=== PATIENT | male | born 1990 | race Caucasian/White ===

== ENCOUNTER 2021-03-02 17:47 | Emergency (ER) | payer OTHER, SELFPAY ==
[2021-03-02 18:14] VITALS: BP 160/83; PULSE 97; RESP 15; TEMP 36.9; O2SAT 97; BMI 27.4
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
[2021-03-02] MEDS: naproxen 500 mg Tablet PO (19:37)
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
[2021-03-02] MEDS: CELEcoxib 200 mg Capsule 400 MG PO (20:23)
[2021-03-02 20:26] VITALS: BP 137/79; PULSE 87; RESP 15; TEMP 36.9; O2SAT 97
== END 2021-03-02 20:24 | disposition home or self-care (01) ==
PROVIDERS: Emergency Provider Nurse Practitioner Family
DX: Z04.1 Encounter for examination and observation following transport accident (principal); V53.5XXA Driver of pick-up truck or van injured in collision with car, pick-up truck or van in traffic accident, initial encounter
CPT/HCPCS: 70450; 71045; 72125; 72170; 73030; 73090; 73562; 99282

== ENCOUNTER 2021-03-13 11:20 | Outpatient (CLI) | payer OTHER, SELFPAY ==
--- NOTE | 2021-03-13 11:28 | XR_ITS ---
WS: [id number] XR lumbar spine 2-3V* [id number] REASON FOR EXAM: BACK PAIN FINDINGS: No significant compression deformity or other focal vertebral body abnormality is identified. There is moderate narrowing of the L5-S1 disc space. There is 4 mm of anterolisthesis of L5 in relati on to L4. There is 7 mm of anterolisthesis of L5 in relation to S1. No spondylolysis identified. XR/XR lumbar spine 2-3V* [id number] IMPRESSION: Degenerative spondylosis at L5-S1 as above.
--- NOTE | 2021-03-13 11:37 | XR_ITS ---
WS: [id number] XR forearm LT 2V [id number] REASON FOR EXAM: ARM PAIN LEFT FINDINGS: No fracture or other focal bone lesion. Joint spaces of the elbow are intact and well preserved. No soft tissue abnormality. XR/XR forearm LT 2V [id number] IMPRESSION: No significant abnormality identified.
--- NOTE | 2021-03-13 11:37 | XR_ITS ---
WS: [id number] Left elbow, 3 views, 03/13/2021 Clinical Data: ARM PAIN LEFT Comparison: None. Findings: No fractures or dislocations are seen. The radial head is normal. The soft tissues are unremarkable. XR/XR elbow LT min 3V* [id number] Impression: Negative left elbow.
== END 2021-03-13 11:21 | disposition home or self-care (01) ==
LOC: RAD 11:24
PROVIDERS: PCP Family Medicine; Visit Provider Family Medicine
DX: M79.602 Pain in left arm (principal); M54.50 Low back pain, unspecified; M47.817 Spondylosis without myelopathy or radiculopathy, lumbosacral region
CPT/HCPCS: 72100; 73080; 73090

== ENCOUNTER 2021-04-06 15:18 | Outpatient (CLI) | payer OTHER, SELFPAY ==
--- NOTE | 2021-04-06 15:21 | MR_ITS ---
WS: [id number] MRI LUMBAR SPINE NONCONTRAST HISTORY: LUMBAR BACK PAIN COMPARISON: Lumbar spine radiograph 03/13/2021 TECHNIQUE: Sagittal and axial multisequence imaging is submitted. L5 anterolisthesis by 7 mm. Mild disc space narrowing and desiccation at L5-S1. There is also mild di sc desiccation at L4-5 without disc space narrowing. Central disc bulging and posterior osteophytes a t T12-L1 without contact on the conus. No marrow edema or fracture. Conus terminates normally at L1-2 disc level. L1-L2: Normal. L2-L3: Normal. L3-L4: Mild ligamentum flavum hypertrophy. No disc protrusions or stenosis. L4-L5: Mild annular disc bulge with a central disc protrusion. Mild ligamentum flavum and facet arthr itis. There is a small amount of fluid in the facet joints. The disc bulging and protrusion is contac ting the traversing L5 nerve roots. Mild bilateral foraminal and subarticular recess stenosis. L5-S1: Anterolisthesis of L5 with unroofing of the disc. There is disc bulging with a central disc pr otrusion. No central stenosis. The disc protrusion does not appear to be contacting S1 nerve roots. T here is very slight contact on the exiting LEFT L5 nerve root. More contact is noted on the exiting R IGHT L5 nerve root. Moderate RIGHT and mild LEFT foraminal stenosis. MR/MR lumbar spine wo con* [id number] IMPRESSION: 1. Grade 1 anterolisthesis of L5. 2. Moderate RIGHT and mild LEFT foraminal stenosis at L5-S1. Disc is contactin g the exiting L5 nerve roots bilaterally, RIGHT greater than LEFT. 3. Disc bulging and protrusion contacting the traversing L5 nerve roots. Mild bilateral foraminal subarticular recess stenosis at L4-5.
--- NOTE | 2021-04-06 15:21 | MR_ITS ---
WS: [id number] MRI LEFT KNEE HISTORY: LEFT KNEE PAIN COMPARISON: Radiograph 03/02/2021 Anterior cruciate ligament: Mild intrasubstance degeneration in the inferior third of the ACL. No tea r. Posterior cruciate ligament: Intact. Medial collateral ligament: Intact. Posterior lateral corner structures: Intact. Medial menisci: Intact. Normal signal, size and shape. Lateral meniscus: Intact. Normal signal, size and shape. Extensor mechanism: Distal quadriceps tendon and patellar tendons are intact. Fluid and soft tissue: No joint effusion. No Joaquin's cyst. Osseous and articular structures: Patellofemoral compartment: Normal. Medial compartment: No significant narrowing of the joint space. There is a small superficial injury to the cartilage along the weightbearing surface of the femoral condyle measuring 4 mm. This defect d oes not extend to the bone. Lateral compartment: Normal. MR/MR knee LT con* [id number] IMPRESSION: 1. Minimal superficial chondromalacia involving the weightbearing surface medi al femoral condyle. 2. Mild intrasubstance degeneration in the distal third of the ACL.
== END 2021-04-06 15:19 | disposition home or self-care (01) ==
LOC: RADSHAW 15:20
PROVIDERS: PCP Family Medicine; Visit Provider Family Medicine
DX: M25.562 Pain in left knee (principal); M48.07 Spinal stenosis, lumbosacral region; M48.061 Spinal stenosis, lumbar region without neurogenic claudication; M51.26 Other intervertebral disc displacement, lumbar region; M94.262 Chondromalacia, left knee
CPT/HCPCS: 72148; 73721

== ENCOUNTER 2024-11-25 05:57 | Day surgery (SDC) | payer MEDICAID, SELFPAY ==
[2024-11-25] VITALS (11 sets, daily range): BP systolic 109–154; BP diastolic 49–103; PULSE 69–100; RESP 12–18; TEMP 36.1–36.5; O2SAT 96–99
--- NOTE | 2024-11-25 06:14 | P.ANESASSM_ITS ---
Pre-Anesthetic Assessment Height/Weight: Height 5 ft 5 in Preop Diagnosis: Ventral hernia Operation Date: 11/25/24 07:00 Proposed Procedures p Ventral Hernia Repair (Open) w/ Mesh 13944, K43.9(Not Applicable) - Alvarez Kelley MD Was Beta Jacob taken within 24 hours: N/A Was Clonidine taken within 24 hours: N/A Social No alcohol and No tobacco Exam alert, oriented x 3, clear to auscultation bilaterally and regular rate & rhythm Airway Submandibular: within normal limits Cervical ROM: within normal limits Mallampati: Class II Dentition: full Anesthetic Plan ASA status: 1 Anesthesia: General Other: No prior issues with anesthesia NPO since yesterday evening Denies any cardiac or pulmonary issues Does not take any medications at baseline METs greater than 4 Plan for general anesthesia Medications/Allergies Home Medications ?Medication ?Instructions ?Recorded ?Confirmed ?Last Taken ?Type hydrocodone 5 mg-acetaminophen 325 1 tab PO Q8H PRN pa in/tooth 03/27/23 11/24/24 Unknown Rx mg tablet abscess 10 days #10 tabs amoxicillin 875 mg tablet 875 mg PO BID tooth abcess # 20 tabs 09/01/24 11/24/24 Unknown Rx Allergies Allergy/AdvReac Type Severity Reaction Status Date / Time No Known Allergies Allergy Verified 11/24/24 10:48 PFSH Anesthesia Social History Smoking and tobacco/nicotine status: never used tobacco/nicotine
[2024-11-25] MEDS: sodium chloride 0.9% 1,000 ML 30 ML IV (06:26)
--- NOTE | 2024-11-25 06:59 | W.PM.OPSFHP ---
Same Day Surgery H&P Indication for Procedure/HPI DATE OF PROCEDURE: November 25, 2024 CHIEF COMPLAINT/INDICATIONFOR SURGICAL PROCEDURE: ventral hernia PREOP DIAGNOSIS: Ventral hernia PLANNED PROCEDURE: Operation Date: 11/25/24 07:00 Proposed Procedures p Ventral Hernia Repair (Open) w/ Mesh 78041, K43.9(Not Applicable) - Alvarez Kelley MD Medications/Allergies* Allergies/Adverse Reactions Allergy/AdvReac Type Severity Reaction Status Date / Time No Known Allergies Allergy Verified 11/24/24 10:48 Current Medications: Generic Name Dose Route Start Last Admin Trade Name Freq PRN Reason Stop Dose Admin Sodium Chloride 1,000 mls @ 30 mls/hr 11/25/24 06:15 11/25/24 06:26 Sodium Chloride 0.9% IV 11/26/24 06:14 30 mls/hr .Q24H GIRISH Administration Pertinent History/Comorbid Conditions* Social History Smoking and tobacco/nicotine status: never used tobacco/nicotine Pertinent Exam Findings alert, oriented x 3, clear to auscultation bilaterally, regular rate & rhythm, operative site marked and procedure specific exam findings abdomen soft, nt, nd, epigastric hernia site marked Recommendations Risks and benefits of procedure reviewed and Patient/family agree to proceed Surgery/Procedure today Coding Level of Care Code Acute Code for Chg Fwd
[2024-11-25] MEDS: ceFAZolin 2,000 mg SDV 2000 MG IVP (07:05)
[2024-11-25] MEDS: lidocaine-epi 1% 20 mL INJ 10 ML INJECTION (07:30)
[2024-11-25] MEDS: BUPivacaine 0.25% INJ 10 mL INJECTION (07:33)
--- NOTE | 2024-11-25 07:40 | P.OP_ITS ---
Operative Report Date of procedure: November 25, 2024 Pre-op diagnosis: Ventral hernia. Post-op diagnosis: same Post-op findings: 2 cm epigastric ventral hernia, hernia sac contained fat only Procedure done: Open ventral hernia repair with mesh Implants: Ventralex ST mesh 4.3 cm Specimens removed/disposition: Hernia sac contents sent to pathology Pathology: Hernia sac contents Surgeon: Alvarez Kelley MD Tea Tree Farmer: N/A Anesthesia: General Estimated blood loss (mL): 5 Complications: N/A Findings: 2 cm epigastric ventral hernia, hernia sac contained fat only Condition: stable Disposition: same day Brief History: 33-year-old male who presented with a ventral hernia. Discussed risk and benefits and patient agreed to proceed with open ventral hernia repair with mesh. Hernia site repaired in the preop area with patient's assistance. Procedure: Patient brought into the OR. Preoperative Ancef administered. Abdomen was prepped and draped in usual sterile fashion. Local infiltration using 5 cc of 1% lidocaine and 0.5% bupivacaine was carried out. A 2 cm incision was carried out using a scalpel directly over the fascial defect. Electrocautery used to dissect down to the fascial defect. Hernia sac opened and it only contained fat. Hernia contents sent to pathology. Fascial defect was freshened up. Fascial defect measured [address] mesh 4.3 cm was used to repair the defect. The fascia was closed incorporating the flap of the mesh, 2-0 Ethibond suture was used in a running fashion. Deep dermal layer was closed using interrupted 3-0 Vicryl. Epidermis was closed using 4-0 Monocryl in a subcutic ular fashion. Glue was applied. The patient woke up from anesthesia without any complications and transferred to PACU.
[2024-11-25] MEDS: oxyCODONE 5 mg IR Tab/Cap PO (08:52)
--- NOTE | 2024-11-25 09:13 | ANE.PACU2 ---
Inpatient post-anesthesia follow up: Airway intact: Yes Vital signs: Temperature 97.2 F Pulse Rate 90 Respiratory Rate 18 Blood Pressure 138/92 Pulse Oximetry 98 Oxygen Delivery Me thod Room Air Oxygen Flow Rate 6 Fraction of Inspir ed Oxygen Hydration adequate: Yes Nausea and vomiting: No Pain level: 1 Mental status: Baseline
== END 2024-11-25 09:13 | disposition home or self-care (01) ==
PROVIDERS: PCP Family Medicine; Visit Provider Student in an Organized Health Care Education/Training Program
PROC: 0WQF0ZZ Repair Abdominal Wall, Open Approach (ICD-10-PCS; CPT 49591; principal; 2024-11-25 07:00)
DX: K43.9 Ventral hernia without obstruction or gangrene (principal)
CPT/HCPCS: 49591; 88302; C1781; J0330; J0690; J1100; J1171; J2250; J2405; J2704; J3010; J3490; J7030; J9999

== ENCOUNTER 2024-12-26 18:06 | Emergency (ER) | payer MEDICAID, SELFPAY ==
[2024-12-26 18:08] VITALS: BP 146/93; PULSE 80; RESP 16; TEMP 36.7; O2SAT 98; BMI 29.2
--- OUTSIDE RECORDS SUMMARY | 2024-12-26 18:13 | XMS_ITS | Patient Health Record ---
Author Organization [facility] Address [address] [place] [address] Care Team Providers Care Caseworker Protective Services Name Role Phone [facility], [facility] Primary Care Provider [facility], [facility] Unavailable [phone] Allergies No Known Allergies Reason For Referral No Information Medications Medication SIG (Take, Route, Frequency, Duration) Notes Start Date End Date Status Phentermine HCl 37.5 MG Tablet 1 tablet Orally Once a day; Duration: 30 days 09/21/2021 Active Social History Tobacco Use: Social History Observation Description Date Details (start date - stop date) Never Smoker NA - NA Social History Depression Screening Social Info Question Answer Notes PHQ-9 Little interest or pleasure in doing thin gs Not at all Feeling down, depressed, or hopeless Not at all Trouble falling or staying asleep, or sleeping t oo much Not at all Feeling tired or having little energy Not at all Poor appetite or overeating Not at all Feeling bad about yourself, or that you are a failure, or have let yourself or your family down Not at all Trouble concentrating on thi ngs, such as reading the newspaper or watching television Not at all Moving or speaking so slowly that other people could have noticed. Or the opposite ? being so fidgety or restless that you have been moving around a lot more than usual Not at all Thoughts that you would be b raymond off , or of hurting yourself in some way Not at all Total Score 0 Drugs/Alcohol: Social Info Question Answer Notes Drugs Have you used drugs other than those for medical reasons in the past 12 months? No Tobacco Use: Social Info Question Answer Notes xTobacco Use/Smoking Are you a nonsmoker Additional Details Category Social Info Options Details Drugs/Alcohol: Do you drink alcohol? No Section Notes: 09/21/21 Problems Problem Type SNOMED Code ICD Code Onset Dates Problem Status W/U Status Risk Notes Problem Obese class I (finding) (390723587926303 ) Obesity (BMI 30.0-34.9) (E66.9) Active confirmed Problem Dietary management surveillance (859745299) Dietary surveillance and counseling (Z71.3) Active confirmed Plan Of Treatment No Information Insurance Providers Payer Name Payer Address Payer Phone Subscriber Number Group Number Insured Name Patient Relationship to Insured Coverage Start Date Coverage End Date [employer] [address] [address] [place] [address] [id number] Negar Murray Spouse - patient is the spouse of the insured Medical (General) History Surgical History Surgery Date(Month/Year) eye surgery 1994
--- OUTSIDE RECORDS SUMMARY | 2024-12-26 18:13 | XMS_ITS | Clinical Summary ---
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 Phone Unavailable Primary Care Provider Unavailabl e Allergies No known active allergies Family History Medical History Relation Name Comments Healthy Brother Respiratory Disease Father Juvenal Healthy Mother Rina Healthy Sister 1 Healthy Sister 2 Healthy Sister 3 Relation Name Status Comments Brother Alive Father Juvenal Alive Mother Rina Alive Sister 1 Alive Sister 2 Alive Sister 3 Alive Social History Tobacco Use Types Packs/Day Years Used Date Smoking Tobacco: Every Day Cigarettes Smokeless Tobacco: Never Alcohol Use Standard Drinks/Week Comments Yes 0 (1 standard drink = 0.6 oz pur e alcohol) Sex and Gender Information Value Date Recorded Sex Assigned at Not on file Legal Sex Male 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
--- OUTSIDE RECORDS SUMMARY | 2024-12-26 18:13 | XMS_ITS | Clinical Summary ---
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 Gender Identity Not on file Sexual Orientation Not on file Last Filed Vital Signs Vital Sign Reading Time Taken Comments Blood Pressure 125/80 05/31/2013 5:16 AM BROOM WORKER Pulse - - Temperature 36.1 C (97 F) 05/31/2013 2:03 AM BROOM WORKER Respiratory Rate 18 05/31/2013 5:16 AM BROOM WORKER Oxygen Saturation 99% 05/31/2013 5:16 AM BROOM WORKER Inhaled Oxygen Concentration - - Weight 63.5 kg (140 lb) 05/31/2013 2:03 AM BROOM WORKER Height 165.1 cm (5' 5 ) 05/31/2013 2:03 AM BROOM WORKER Body Mass Index 23.3 05/31/2013 2:03 AM BROOM WORKER Plan of Treatment Health Maintenance Due Date Last Done Comments HPV VACCINES (1 - Male 3-dose series) 12/06/2003 DTAP/TDAP/TD VACCINES (1 - Tdap) 12/06/2007 HEPATITIS B VACCINES (1 of 3 - 19+ 3-dose series) 11/09 INFLUENZA VACCINE (#1) 2025
[2024-12-26 19:14] VITALS: BP 128/87; PULSE 78; RESP 16; O2SAT 98
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
[2024-12-26 20:42] VITALS: BP 133/95; PULSE 84; RESP 17; O2SAT 99
== END 2024-12-26 20:45 | disposition home or self-care (01) ==
PROVIDERS: Emergency Provider Family Medicine; PCP Family Medicine
DX: S39.012A Strain of muscle, fascia and tendon of lower back, initial encounter (principal); S50.11XA Contusion of right forearm, initial encounter; S60.00XA Contusion of unspecified finger without damage to nail, initial encounter; S80.02XA Contusion of left knee, initial encounter; S80.01XA Contusion of right knee, initial encounter; V89.2XXA Person injured in unspecified motor-vehicle accident, traffic, initial encounter; Y92.410 Unspecified street and highway as the place of occurrence of the external cause
CPT/HCPCS: 73090; 99283